=== PATIENT | female | born 1985 | race Caucasian/White ===

== ENCOUNTER 2016-07-30 11:38 | Emergency (ER) | payer OTHER ==
[2016-07-30 11:48] VITALS: BP 101/59
--- NOTE | 2016-07-30 13:19 | UC ---
UC General HPI - HPI Summary HPI Summary: Patient is here with multiple complaints, first she has a rash on her chest, back and arms, she has had it for a while comes out when she is hot. second, she has had loose stools for the past month, has lost 15 pounds and is not tolerating food well. hx of anxiety has been on lexapro for the past year. 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 - History of Current Complaint Chief Complaint: UCGeneralIllness Stated Complaint: ABD PAIN,BLOOD IN URINE Time Seen by Provider: 07/30/16 12:34 Hx Obtained From: Patient Onset/Duration: Sudden Onset, Lasting Weeks Timing: Constant Onset Severity: Moderate Current Severity: Severe Associated Signs & Symptoms: Positive: Abdominal Pain, Diarrhea, Headache, Nausea, Weakness - Allergy/Home Medications Allergies/Adverse Reactions: Allergies Allergy/AdvReac Type Severity Reaction Status Date / Time No Known Allergies Allergy Verified 07/30/16 11:47 PMH/Surg Hx/FS Hx/Imm Hx Previously Healthy: Yes Endocrine History Of: Denies: Diabetes, Thyroid Disease Cardiovascular History Of: Denies: Cardiac Disorders, Hypertension, Pacemaker/ICD Respiratory History Of: Denies: Asthma GI/ History Of: Reports: Kidney Stones - RIGHT SIDED KIDNEY [id number] SINCE Denies: Renal Disease Psychological History Of: Reports: Anxiety - ON MED, Depression - ON MED - Surgical History Surgical History: Yes Surgery Procedure, Year, and Place: Tubal lig-. GALLBLADDER-. KIDNEY STONE REMOVAL. t/a. thyroid cyst - Family History Known Family History: Negative: Cardiac Disease, Hypertension - Social History Alcohol Use: Occasionally Alcohol Amount: 1-2 A MONTH Substance Use Type: None Smoking Status (MU): Light Every Day Tobacco Smoker Amount Used/How Often: 4 CIGS DAILY Length of Time of Smoking/Using Tobacco: 6 YEARS Have You Smoked in the Last Year: Yes Review of Systems Constitutional: Fatigue Skin: Rash Eyes: Negative ENT: Negative Respiratory: Negative Cardiovascular: Palpitations Gastrointestinal: Abdominal Pain, Diarrhea Genitourinary: Negative Motor: Negative Neurovascular: Negative Musculoskeletal: Negative Neurological: Headache Psychological: Anxious All Other Systems Reviewed And Are Negative: Yes Physical Exam Triage Information Reviewed: Yes Appearance: Well-Nourished, Ill-Appearing, Pain Distress Vital Signs: Initial Vital Signs Temp 97.4 F 07/30/16 11:42 Pulse 70 07/30/16 11:42 Resp 14 07/30/16 11:42 BP 101/59 07/30/16 11:42 Pulse Ox 100 07/30/16 11:42 Vital Signs Reviewed: Yes Eye Exam: Normal Eyes: Positive: Conjunctiva Clear ENT Exam: Normal ENT: Positive: Hearing grossly normal, Pharynx normal, TMs normal Dental Exam: Normal Neck exam: Normal Neck: Positive: Supple, Nontender, No Lymphadenopathy Respiratory Exam: Normal Respiratory: Positive: Chest non-tender, Lungs clear, Normal breath sounds Cardiovascular: Positive: No Murmur, Pulses Normal, Bradycardia Abdominal Exam: Normal Abdomen Description: Positive: Soft, CVA Tenderness (R) - neg, CVA Tenderness (L ) - neg, Other: - diffusely tender, no guarding no rebound tenderness Bowel Sounds: Positive: Hyperactive Musculoskeletal Exam: Normal Musculoskeletal: Positive: Strength Intact, ROM Intact, No Edema Neurological Exam: Normal Neurological: Positive: Alert, Muscle Tone Normal Psychological Exam: Other - patient does seem anxious, frustrated as she feels her doctor has been not listening to her concerns, she is holding back tears at beginning of exam, improved by the end of the meeting Skin: Positive: rashes - tinea versacolor rash, Other Course/Dx - Course Course Of Treatment: hx obtained, exam performed, meds reviewed, increased the lexapro dose and patient already has an appointment with pcp in 3 weeks for follow up. Started patient on ketoconizole for the rash. Blood work drawn to rule out infection, electrolye imbalance, and Mg level drawn as patient has been on high dose magnesium for a few months now. - Differential Dx - Multi-Symptom Provider Diagnoses: diarrhea. anxiety. weight loss of 15 pounds. tinea versicolor Discharge - Discharge Plan Condition: Stable Disposition: HOME Prescriptions: Escitalopram (NF) [Lexapro 20 mg (NF)] 20 mg PO DAILY #30 tab Ketoconazole (Topical) [Ketoconazole] 2 % TOPICAL BID #1 tube Patient Education Materials: Tinea Versicolor (ED), Anxiety (ED) Referrals: Andrew Ladd DO [Primary Care Provider] - Additional Instructions: 1. Take the medication as prescribed. 2. Increase your fluid intake 3. We linnea a magnesium level and a CBC and electrolye panel for you, we will call with any abnormal results. 4. eat small meals as tolerated. 5. follow up with Dr Ladd in the next 2-3 weeks to reevaluate the change in dosage of lexapro.
[2016-07-31 13:47] LABS: Hematocrit 44 % (35-47); Hemoglobin 14.6 g/dl (12.0-16.0); Mean Corpuscular HGB Conc 34 g/dl (31-36); Mean Corpuscular Hemoglobin 32 pg (27-31); Mean Corpuscular Volume 95 fL (80-97); Mean Platelet Volume 11 um3 (7.4-10.4); Red Blood Count 4.59 10^6/ul (4.0-5.4); Red Cell Distribution Width 13 % (10.5-15); White Blood Count 7.5 10^3/ul (3.5-10.8)
[2016-07-31 13:58] LABS: Albumin 4.3 g/dL (3.2-5.2); BUN/Creatinine Ratio 13.4 (8-20); Calcium 9.6 mg/dL (8.6-10.3); EGFR African American 132.9 (>60); EGFR Non-African American 103.3 (>60); Globulin 2.6 g/dL (2-4); Magnesium 1.8 mg/dL (1.9-2.7); Potassium 3.9 mmol/L (3.5-5.0); Total Bilirubin 1.7 mg/dL (0.2-1.0); Total Protein 6.9 g/dL (6.4-8.9)
--- NOTE | 2016-07-31 18:43 | UC ---
Progress - Progress Note Progress Note: Please notify pt that her magnesium level is still slightly low, even though she has been on high dose magnesium. Her level is 1.8 and normal starts at 1.9. Also please notify pt that her bilirubin is elevated, even though the rest of her liver functions are normal. This will have to be evaluated further by her PCP. However, by comparing it with her previous labs in the system this is the highest number for her bilirubin. It is nonspecific, but can sometimes mean there is a retained stone in her bile duct, even though her gall bladder is removed, or it can be hereditary (Gilbert's syndrome), or it can be due to medication. She should avoid any liver toxins, alcohol and acetaminophen, and she should have definite follow up with her PCP as scheduled (3 weeks), and she should go to the ER if she has abdominal pain. There is no sign of overwhelming infection based on her blood count.(CBC).
== END 2016-07-30 13:23 | disposition home or self-care (01) ==
LOC: UCCORT 11:38
DX: R19.7 Diarrhea, unspecified (principal); F41.9 Anxiety disorder, unspecified; R63.4 Abnormal weight loss; B36.0 Pityriasis versicolor
CPT/HCPCS: 36415; 80053; 81003; 83735; 84702; 85025; 93005; 99212; G0463

== ENCOUNTER 2017-02-14 08:23 | Emergency (ER) | payer OTHER ==
--- NOTE | 2017-02-14 08:51 | UC ---
Head Injury HPI - HPI Summary HPI Summary: head injury x 1 day ago s/p fall at her home one day ago and hit the back of her head to the floor ? LOC, + PHOTOPHOBIA, + NAUSEA AND VOMITING , LIGHTHEADED , PAIN ALL OVER - History Of Current Complaint Chief Complaint: UCGeneralIllness Stated Complaint: S/P FALL HEAD INJURY BACK/STOMACH PAIN VOMITING Time Seen by Provider: 02/14/17 08:29 Hx Obtained From: Patient Hx Last Menstrual Period: 01/22/17 ?: No Onset/Duration: Sudden Onset, Lasting Days - 1, Still Present Severity Currently: Moderate Severity Initially: Moderate Character: Dull Aggravating Factor(s): Nothing Alleviating Factor(s): Nothing Associated Signs And Symptoms: Positive: LOC Duration Unknown, Memory Loss, Neck Pain, Nausea, Vomiting. Negative: Confusion, Seizure, Epistaxis, Dental Malocclusion - Allergies/Home Medications Allergies/Adverse Reactions: Allergies Allergy/AdvReac Type Severity Reaction Status Date / Time No Known Allergies Allergy Verified 02/14/17 08:31 Home Medications: Home Medications Ibuprofen [Ibuprofen 200 MG] 400 mg PO Q4H PRN 02/14/17 [History Confirmed 02/14] PMH/Surg Hx/FS Hx/Imm Hx Previously Healthy: Yes - Surgical History Surgical History: Yes Surgery Procedure, Year, and Place: Tubal lig-. GALLBLADDER-. KIDNEY STONE REMOVAL. t/a. thyroid cyst. laproscopic - Family History Known Family History: Negative: Cardiac Disease, Hypertension - Social History Alcohol Use: Occasionally Alcohol Amount: 1-2 A MONTH Substance Use Type: None Smoking Status (MU): Former Smoker Amount Used/How Often: 4 CIGS DAILY Length of Time of Smoking/Using Tobacco: 6 YEARS Have You Smoked in the Last Year: Yes When Did the Patient Quit Smoking/Using Tobacco: 3 weeks ago Review of Systems Constitutional: Negative Skin: Negative Eyes: Negative ENT: Negative Respiratory: Negative Musculoskeletal: Myalgia Neurological: Headache, Weakness Psychological: Negative Is Patient Immunocompromised?: No All Other Systems Reviewed And Are Negative: Yes Physical Exam Triage Information Reviewed: Yes Appearance: Well-Appearing, No Pain Distress, Well-Nourished Vital Signs: Initial Vital Signs Temp 99.3 F 02/14/17 08:32 Pulse 78 02/14/17 08:32 Resp 16 02/14/17 08:32 BP 110/71 02/14/17 08:32 Vital Signs Reviewed: Yes Eyes: Positive: Conjunctiva Clear ENT: Positive: Normal ENT inspection, Hearing grossly normal, Pharynx normal, TMs normal Neck exam: Normal Neck: Positive: Supple, Nontender, No Lymphadenopathy Respiratory: Positive: Chest non-tender, Lungs clear, Normal breath sounds, No respiratory distress Cardiovascular: Positive: RRR, No Murmur, Pulses Normal Abdominal Exam: Normal Abdomen Description: Positive: Nontender, Soft. Negative: CVA Tenderness (R), CVA Tenderness (L), Distended, Guarding Musculoskeletal: Positive: Strength Intact, ROM Intact Neurological: Positive: Alert Skin Exam: Normal UC Physical Exam Vital Signs On Initial Exam: Initial Vitals Temp Pulse Resp BP 99.3 F 78 16 110/71 02/14/17 08:32 02/14/17 08:32 02/14/17 08:32 02/14/17 08:32 - Neurological Exam Neurological: Normal, Sensory/Motor Intact, Alert, Oriented to Person Place, Time, CN Intact II-III, Reflexes Intact, Normal Gait, Speech Normal Head Injury Course/Dx - Differential Dx/Diagnosis Provider Diagnoses: CONCUSSION. CONTUSION BODY Discharge - Discharge Plan Condition: Stable Disposition: HOME Prescriptions: Naproxen [Naproxen 500 mg] 500 mg PO BID #20 tab Patient Education Materials: Concussion (ED), Contusion in Adults (ED) Referrals: Andrew Ladd DO [Primary Care Provider] - 7 Days
[2017-02-14 08:55] VITALS: BP 110/71
== END 2017-02-14 08:55 | disposition home or self-care (01) ==
LOC: UCCORT 08:23
DX: S06.0X9A Concussion with loss of consciousness of unspecified duration, initial encounter (principal); T14.8XXA Other injury of unspecified body region, initial encounter; W19.XXXA Unspecified fall, initial encounter; Y93.9 Activity, unspecified; Y92.009 Unspecified place in unspecified non-institutional (private) residence as the place of occurrence of the external cause; Y99.9 Unspecified external cause status; Z87.891 Personal history of nicotine dependence
CPT/HCPCS: 99211; G0463

== ENCOUNTER 2017-02-23 08:23 | Emergency (ER) | payer OTHER ==
[2017-02-23 08:33] VITALS: BP 113/63
--- NOTE | 2017-02-23 09:07 | UC ---
Respiratory Complaint HPI - HPI Summary HPI Summary: 31 year old female with cough. 2 DAYS AGO PT LOST VOICE, MINOR COUGH BUT DOES STATE THAT HER CHEST HURTS WHEN SHE BREATHS. LOWER BACK IS ALSO PAINFUL. ALSO HAS ST no fever. no difficulty swallowing. no CP or SOB. [ End ] - History of Current Complaint Chief Complaint: UCGeneralIllness Stated Complaint: SORE THROAT CHEST DISCOMFORT LOW BACK PAIN Time Seen by Provider: 02/23/17 09:06 Hx Obtained From: Patient Hx Last Menstrual Period: 01/22/17 Onset/Duration: Sudden Onset Severity Initially: Moderate Character: Cough: Nonproductive Aggravating Factors: Nothing Alleviating Factors: Nothing Associated Signs And Symptoms: Positive: Nasal Congestion, Hoarseness - Allergies/Home Medications Allergies/Adverse Reactions: Allergies Allergy/AdvReac Type Severity Reaction Status Date / Time No Known Allergies Allergy Verified 02/14/17 08:31 PMH/Surg Hx/FS Hx/Imm Hx Previously Healthy: Yes Psychological History: Anxiety - Surgical History Surgical History: Yes Surgery Procedure, Year, and Place: Tubal lig-. GALLBLADDER-. KIDNEY STONE REMOVAL. t/a. thyroid cyst - Family History Known Family History: Negative: Cardiac Disease, Hypertension - Social History Occupation: Employed Full-time Lives: With Family Alcohol Use: Occasionally Alcohol Amount: 1-2 A MONTH Substance Use Type: None Smoking Status (MU): Light Every Day Tobacco Smoker Amount Used/How Often: 4 CIGS DAILY Length of Time of Smoking/Using Tobacco: 6 YEARS Have You Smoked in the Last Year: Yes When Did the Patient Quit Smoking/Using Tobacco: 3 weeks ago - Immunization History Most Recent Influenza Vaccination: NOT CURRENT Review of Systems Constitutional: Chills, Fatigue ENT: Sore Throat, Ear Ache, Nasal Discharge, Sinus Congestion, Sinus Pain/ Tenderness Respiratory: Cough Is Patient Immunocompromised?: No All Other Systems Reviewed And Are Negative: Yes Physical Exam Triage Information Reviewed: Yes Appearance: Well-Appearing, No Pain Distress, Well-Nourished Vital Signs: Initial Vital Signs Temp 97.6 F 02/23/17 08:28 Pulse 83 02/23/17 08:28 Resp 18 02/23/17 08:28 BP 113/63 02/23/17 08:28 Pulse Ox 100 02/23/17 08:28 Vital Signs Reviewed: Yes Eye Exam: Normal ENT Exam: Normal Dental Exam: Normal Neck exam: Normal Neck: Positive: 1 Respiratory Exam: Normal Cardiovascular Exam: Normal Musculoskeletal Exam: Normal Neurological Exam: Normal Psychological Exam: Normal Skin Exam: Normal UC Diagnostic Evaluation - Laboratory O2 Sat by Pulse Oximetry: 100 Respiratory Course/Dx - Course Course Of Treatment: uri -- viral -- treat supportviely - Differential Dx/Diagnosis Differential Diagnosis/HQI/PQRI: Bronchitis, Lower Resp Infection, Sinusitis Provider Diagnoses: URI Discharge - Discharge Plan Condition: Good Disposition: HOME Prescriptions: Methylprednisolone [Medrol Dosepak 4 MG*] 0 mg PO .SEE LYNNE INSTRUCTION #1 tab Patient Education Materials: Upper Respiratory Infection (ED) Referrals: Zora Nevarez PA [Primary Care Provider] - 4 Days
--- OUTSIDE RECORDS SUMMARY | 2017-02-23 09:13 | XMS REPORT | Continuity of Care Document ---
:1985 Author Organization [facility] Address [address] [place] [address] Care Team Providers Name Role Phone rCistina JEFFERSON Primary Care Physician [phone] Insurance Providers Payer Name Policy Number Subscriber Name Relationship [facility] [id number] [employer] SELF Advance Directives Directive Response Recorded Date/Time Code status: Full code 02/09/17 8:43am Advance Directive? Y 02/09/17 8:43am Living Will? N 02/09/17 8:43am Health Care Proxy? 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 02/09/17 8:43am Chief Complaint and Reason for Visit Reason for Visit FEELS LIKE SOMETHING ATTACKING MUSCLES Problems Active Medical Problems Problem Onset Date Recorded Date Status Bronchitis Unknown 08/21/13 Active Abdominal pain Unknown 10/13/13 Active Gastritis Unknown 10/16/13 Active Palpitations Unknown 10/16/13 Active Abdominal pain Unknown 11/14/13 Active GERD (gastroesophageal reflux disease) Unknown 11/14/13 Active Syncope Unknown 11/18/13 Active Chest pain Unknown 11/18/13 Active Pain, dental Unknown 05/18/14 Active Dental abscess Unknown 05/19/14 Active Sinusitis, acute Unknown 05/20/14 Active Post-op bleeding Unknown 07/27/14 Active Anemia Unknown 07/29/14 Active Diarrhea Unknown 10/27/15 Active Pain, abdominal, nonspecific Unknown 10/27/15 Active Hypokalemia due to loss of potassium Unknown 10/27/15 Active Pharyngitis Unknown 01/14/16 Active Medications Current Home Medications Medication Dose Units Route Directions Days/Qty Instructions Start Date Alprazolam 0.25 0.25 MG ORAL 3 TIMES DAILY 90 MG TABLET as needed for ANXIETY Ibuprofen 400 MG 400 MG ORAL EVERY 4 TO 6 14 TABLET HRS as needed for PAIN Ondansetron HCl 4 MG ORAL EVERY 8 HOURS 10 NEEDED FOR 11/04/16 (Zofran) 4 MG NEEDED as NAUSEA TABLET needed for NAUSEA Past Home Medications Medication Directions Ordered Status Acetaminophen (Tylenol) 325 Mg Tab EVERY 6 HOURS NEEDED Unknown Discontinued Tab, 2 Tab Oral Acetaminophen (Tylenol) 325 Mg ONCE DAILY as needed for PAIN Unknown Discontinued Tablet Tablet, 2 Tab Oral Acetaminophen (Tylenol) 325 Mg ONCE DAILY as needed for PAIN Unknown Discontinued Tablet Tablet, 2 Tab Oral Acetaminophen (Tylenol) 500 Mg Tab EVERY 4 HOURS NEEDED Unknown Discontinued Tab, 500 Mg Oral Acetaminophen (Tylenol) 500 Mg Tab Unknown Discontinued Tab, 500 Mg Oral Acetaminophen (Tylenol) 500 Mg Tab Unknown Discontinued Tab, 500 Mg Oral Acetaminophen/Hydrocodone Bi EVERY 4 HOURS NEEDED 10/18/11 Discontinued (Vicodin 5/500) 5 Mg/500 Mg Tab Tab, 1 Tab Oral Acetaminophen/Hydrocodone Bi EVERY 4-6 HOURS NEEDED 04/22/10 Discontinued (Vicodin 5/500) 5 Mg/500 Mg Tab Tab, 1 Tab Oral Acetaminophen/Hydrocodone Bi EVERY 4-6 HOURS NEEDED 01/12/10 Discontinued (Vicodin 5/500) 5 Mg/500 Mg Tab Tab, 1 Tab Oral Acetaminophen/Hydrocodone Bi EVERY 4-6 HOURS NEEDED Unknown Discontinued (Vicodin 5/500) 5 Mg/500 Mg Tab Tab, 1-2 Tab Oral Acetaminophen/Hydrocodone Bi EVERY 4 HOURS NEEDED 04/07/08 Discontinued (Vicodin 5/500) 5 Mg/500 Mg Tab Tab, 1 Tab Oral Acetaminophen/Oxycodone Hydr EVERY 6 HOURS NEEDED 11/17/11 Discontinued (Percocet) 5 Mg-325 Mg Tab Tab, 1-2 Tab Oral Acetaminophen/Oxycodone Hydr EVERY 6 HOURS NEEDED Unknown Discontinued (Percocet) 5 Mg-325 Mg Tab Tab, 1 Tab Oral Acetaminophen/Oxycodone Hydr EVERY 4 HOURS NEEDED Unknown Discontinued (Percocet) 7.5 Mg-500 Mg Tab Tab, 1 Tab Oral Albuterol (Proventil) 90 Mcg/Puff EVERY 2 HOURS NEEDED 04/22/10 Discontinued Inhaler Inhaler, 2 Puff Inhalation Albuterol (Proventil) 90 Mcg/Puff EVERY 4 HOURS NEEDED 04/20/09 Discontinued Inhaler Inhaler, 2 Puff Inhalation Albuterol (Proventil) 90 Mcg/Puff EVERY 2 HOURS NEEDED 01/23/08 Discontinued Inhaler Inhaler, 2 Puff Inhalation Alprazolam 0.25 Mg Tablet Tablet, NEEDED Unknown Discontinued 1 Tab Oral Alprazolam 0.25 Mg Tablet Tablet, EVERY 4 HOURS NEEDED as 11/19/13 Discontinued 0.125 Mg Oral needed for ANXIETY Aluminum Hydroxide/Magnesium EVERY 6 HOURS 05/07/09 Discontinued (Maalox 225 Mg/5 Ml-200 Mg/5 Ml 360 Ml) 360 Ml Oanh Oanh, 30 Ml Oral Amoxicillin (Amoxil) 500 Mg Cap 2 TIMES A DAY 04/20/09 Discontinued Cap, 1 Cap Oral Apap/Cpm/Dm/Pse Hcl (Tylenol Cold NEEDED Unknown Discontinued 325 Mg-2 Mg-15 Mg-30 Mg) 1 Tab Tab Tab, 1 Tab Oral Azithromycin (Zithromax Z-Andrea) 250 Unknown Discontinued Mg Pack Pack, Azithromycin (Zithromax) 250 Mg DIRECTED 08/21/13 Discontinued Tablet Tablet, 1 Pac Oral Benzocaine/Menthol (Cepacol Sore EVERY 4 HOURS NEEDED as 01/14/16 Discontinued Throat Lozenge) 15 Mg-3.6 Mg needed for pharyngitis Lozenge Lozenge, 1 [place] Oral Buspirone Hcl 7.5 Mg Tablet 2 TIMES A DAY as needed for Unknown Discontinued Tablet, 7.5 Mg Oral ANXIETY Cyclobenzaprine (Flexeril) 10 Mg EVERY 4-6 HOURS NEEDED 10/18/11 Discontinued Tab Tab, 1 Tab Oral Cyclobenzaprine Hcl (Flexeril *) 5 3 TIMES DAILY Unknown Discontinued Mg Tablet Tablet, 5 Mg Oral Doxycycline (Doxycycline Hyclate) 2 TIMES A DAY Unknown Discontinued 50 Mg Capsule Capsule, 50 Mg Oral Erythromycin (Ancelmo-Tab) 500 Mg Tcp 4 TIMES A DAY 01/23/08 Discontinued Tcp, 500 Mg Oral Escitalopram (Lexapro) 20 Mg Tab ONCE DAILY Unknown Discontinued Tab, 1 Tab Oral Escitalopram Oxalate (Lexapro) 10 AT BEDTIME Unknown Discontinued Mg Tablet Tablet, 10 Mg Oral Escitalopram Oxalate (Lexapro) 10 ONCE DAILY 11/19/13 Discontinued Mg Tablet Tablet, 10 Mg Oral Ferrous Sulfate (Feosol) 325 Mg 2 TIMES A DAY Unknown Discontinued Tablet Tablet, 2 Tab Oral Ferrous Sulfate (Feosol) 325 Mg ONCE for ANEMIA 07/29/14 Discontinued Tablet Tablet, 1 Tab Oral Generic Name Is Missing EVERY 8 HOURS NEEDED 12/27/08 Discontinued (Phenergan) 12.5 Mg/Supp.rect Supp.rect Supp.rect, 12.5 Mg Rectal Generic Name Is Missing () ONCE DAILY Unknown Discontinued 1 Tab Tablet Tablet, Generic Name Is Missing () ONCE DAILY Unknown Discontinued 1 Tab Tablet Tablet, 1 Tab Oral Guaifenesin/Dm (Robitussin Dm) 100 EVERY 4-6 HOURS NEEDED 04/20/09 Discontinued Mg/10 Mg Ml Ml, 1 Tsp Oral Hyoscyamine Sulfate (Hyomax-Sl) BEFORE MEALS 11/16/13 Discontinued 0.125 Mg Tab.subl Tab.subl, 0.25 Mg Oral Ibuprofen (Motrin) 600 Mg Tab Tab, EVERY 8 HOURS NEEDED 02/13/08 Discontinued 1 Tab Oral Ibuprofen (Motrin) 600 Mg Tab Tab, EVERY 6-8 HOURS NEEDED 10/09/07 Discontinued 1 Tab Oral Ibuprofen 400 Mg Tablet Tablet, EVERY 4 TO 6 HRS 08/02/16 Discontinued 400 Mg Oral Ibuprofen 600 Mg Tablet Tablet, 3 TIMES DAILY 05/18/14 Discontinued 600 Mg Oral Magnesium Oxide (Mag-Oxide) 400 Mg 2 TIMES A DAY Unknown Discontinued Tablet Tablet, 1 Tab Oral Magnesium Oxide (Magnesium) 400 Mg EVERY 48 HOURS Unknown Discontinued Capsule Capsule, 1 Oral Magnesium Oxide (Magnesium) 400 Mg 2 TIMES A DAY Unknown Discontinued Capsule Capsule, 1 Tab Oral Meloxicam 7.5 Mg Tablet Tablet, ONCE DAILY Unknown Discontinued 7.5 Mg Oral Metaxalone (Skelaxin) 800 Mg ONCE DAILY as needed for PAIN Unknown Discontinued Tablet Tablet, 1 Tab Oral Metoclopramide (Reglan) 10 Mg Tab BEFORE MEALS & AT BEDTIME 04/07/08 Discontinued Tab, 10 Mg Oral Metoprolol Tartrate 25 Mg Tablet 2 TIMES A DAY Unknown Discontinued Tablet, 25 Mg Oral Metronidazole (Flagyl) 250 Mg 2 TIMES A DAY Unknown Discontinued Tablet Tablet, 250 Mg Oral Metronidazole (Flagyl) 500 Mg 2 TIMES A DAY 05/19/14 Discontinued Tablet Tablet, 500 Mg Oral Metronidazole (Flagyl) 500 Mg 2 TIMES A DAY Unknown Discontinued Tablet Tablet, 500 Mg Oral Metronidazole (Metrogel) 1 % Gel AT BEDTIME 12/27/08 Discontinued Gel, 1 % Topical Midodrine Hcl 5 Mg Tab Tab, 5 Mg 2 TIMES A DAY Unknown Discontinued Oral Multivitamin, ( ONCE DAILY Unknown Discontinued Vitamins) 1 Tab Tab Tab, 1 Tab Oral No Medication Used (Pt Denies Any DIRECTED Unknown Discontinued Use Of Medications) 1 Form Form Form, 1 Form See Comment Nortriptyline (Pamelor) 10 Mg Cap AT BEDTIME Unknown Discontinued Cap, 10 Mg Oral Omeprazole (Prilosec) 40 Mg ONCE DAILY 10/16/13 Discontinued Capsule. Capsule.dr, 40 Mg Oral Ondansetron (Zofran Odt) 4 Mg Tab EVERY 6-8 HOURS NEEDED 12/07/08 Discontinued Tab, 1 Tab Oral Ondansetron Hcl (Zofran) 4 Mg EVERY 8 HOURS NEEDED as 02/02/17 Discontinued Tablet Tablet, 4 Mg Oral needed for NAUSEA Ondansetron Hcl (Zofran) 4 Mg EVERY 8 HOURS NEEDED as 08/02/16 Discontinued Tablet Tablet, 4 Mg Oral needed for NAUSEA Ondansetron Hcl (Zofran) 4 Mg 3 TIMES A DAY NEEDED as 06/15/16 Discontinued Tablet Tablet, 4 Mg Oral needed for NAUSEA Ondansetron Hcl (Zofran) 4 Mg EVERY 8 HOURS NEEDED as 10/27/15 Discontinued Tablet Tablet, 4 Mg Oral needed for NAUSEA Ondansetron Hcl (Zofran) 4 Mg EVERY 8 HOURS 10/16/13 Discontinued Tablet Tablet, 4 Mg Oral Oxycodone Hcl/Acetaminophen EVERY 4 TO 6 HRS as needed Unknown Discontinued (Percocet 5-325 Mg Tablet) 1 Each for PAIN Tablet Tablet, 1 Tablet Oral Oxycodone Hcl/Acetaminophen EVERY 4 TO 6 HRS for PAIN 05/22/14 Discontinued (Percocet 5-325 Mg Tablet) 1 Each Tablet Tablet, 1-2 Tablet Oral Penicillin V Potassium 500 Mg EVERY 12 HOURS 05/18/14 Discontinued Tablet Tablet, 500 Mg Oral Promethazine (Phenergan) 25 Mg Tab EVERY 4-6 HOURS NEEDED 01/12/10 Discontinued Tab, 1 Tab Oral Scopolamine Hydrobromide Q72H 11/19/13 Discontinued (Transderm-Scop) 1 Patch Patch Patch, 1 Patch Transdermal Sucralfate (Carafate 1 Gm) 1 Gram 2 TIMES A DAY 05/07/09 Discontinued Tab Tab, 1 Gm Oral Tramadol Hcl (Ultram) 50 Mg Tablet EVERY 4 TO 6 HRS Unknown Discontinued Tablet, 50 Mg Oral Family History Relationship Name Date of Condition Age ( At Cause Age ( Age Gender Recorded Onset ) of At Date/Time ) MOTHER Family history F 07/28/14 of fibromyalgia 0054 MOTHER Family history F 07/28/14 of neuropathy 0054 MOTHER Family history F 07/28/14 of cardiac 0054 disorder MOTHER Family history F 07/28/14 of type 1 0054 diabetes mellitus SISTER Family history F 07/28/14 of thyroid 0054 disease Social History Problem Response Recorded Date Other substance/drug use HASN'T USED [facility] IN A 02/09/17 WHILE Tobacco use within the past 12 N 12/14/12 months? Alcohol amt NONE 09/08/10 Evidence of drug/alcohol abuse? N 02/09/17 Query Response Start Date Stop Date Smoking Status Former smoker Status Date Recorded Not November 04, 2016 Hospital Discharge Instructions No hospital discharge instructions. Plan of Care Discharge Date 02/09/17 Disposition Routine Discharge Home Instructions/Education Provided Musculoskeletal Pain (ED) Prescriptions See Medications Section Referrals MARILYN JEFFERSON - Additional Instructions/Education You need to make an appointment to follow- up with the following health care provider or your regular doctor within 3 days. Please make your appointment to see your health care provider as soon as possible. Please return immediately if your symptoms worsen, or you cannot get a follow-up appointment. Functional Status Query Response Date Recorded Do you get in and out of a chair: Independently February 09, 2017 8:41am Do you walk: Independently February 09, 2017 8:41am Do you bathe/dress: Independently February 09, 2017 8:41am Adaptive devices: None February 09, 2017 8:41am Living situation: Homeless February 09, 2017 8:41am Mood: Accepting February 09, 2017 8:41am Orientation: X3: Person/place/time February 09, 2017 8:41am Allergies, Adverse Reactions, Alerts No known allergies. Immunizations Name Date Given Type Influenza vaccine (date): Historical Pneumococcal vaccine (date): NO Historical Last Tetanus 07/2010 Historical Vital Signs Vital Reading Collection Date/Time Result Blood Pressure 02/09/17 12:00pm 92/54 Temperature 02/09/17 12:00pm 98.0 F Temperature Source 02/09/17 12:00pm Oral Respiratory Rate 02/09/17 12:00pm 16 Pulse Rate 02/09/17 12:00pm 66 Bedside Pulse Oximetry 02/09/17 12:00pm 98 Height 02/09/17 8:30am 5 ft 3 in Height 02/09/17 8:30am 160.02 cm Weight 02/09/17 8:30am 119 lb Weight 02/09/17 8:30am 53.978 kg Body Mass Index 02/09/17 8:30am 21.1 kg/m2 Results Laboratory Results Test Name Result Units Flags Reference Collection Result Comments Date/Time Date/Time Urine Color YELLOW YELLOW 02/09/17 02/09/17 10:22am 10:32am Urine Clarity CLEAR CLEAR 02/09/17 02/09/17 10:22am 10:32am Urine Glucose NEGATIVE mg/dL NEGATIVE 02/09/17 02/09/17 (UA) 10:22am 10:32am Urine Bilirubin NEGATIVE NEGATIVE 02/09/17 02/09/17 10:22am 10:32am Urine Ketones NEGATIVE mg/dL NEGATIVE 02/09/17 02/09/17 10:22am 10:32am Urine Specific >=1.03 1.010-1.03 02/09/17 02/09/17 [place] 0 0 10:22am 10:32am Urine Blood SMALL H NEGATIVE 02/09/17 02/09/17 10:22am 10:32am Urine pH 5.5 L 6.5-7.5 02/09/17 02/09/17 10:22am 10:32am Urine Protein NEGATIVE mg/dL NEGATIVE 02/09/17 02/09/17 10:22am 10:32am Urine 0.2 E.U./d 0.2-1.0 02/09/17 02/09/17 Urobilinogen L 10:22am 10:32am Urine Nitrite NEGATIVE NEGATIVE 02/09/17 02/09/17 10:22am 10:32am Urine Leukocyte NEGATIVE NEGATIVE 02/09/17 02/09/17 Esterase 10:22am 10:32am Urine RBC 2-5 rbc/hp 0-2 02/09/17 02/09/17 f 10:22am 11:09am Urine WBC 0-2 wbc/hp 0-7 02/09/17 02/09/17 f 10:22am 11:09am Urine Epithelial FEW /lpf NONE SEEN 02/09/17 02/09/17 Cells 10:22am 11:09am Urine Bacteria VERY FEW NONE SEEN 02/09/17 02/09/17 10:22am 11:09am Urine Hyaline 0-2 #/lpf NONE SEEN 02/09/17 02/09/17 Casts 10:22am 11:09am Urine Mucus SMALL NONE SEEN 02/09/17 02/09/17 10:22am 11:09am Urine HCG, NEGATIVE NEGATIVE 02/09/17 02/09/17 FIRST MORNING SPECIMENS GENERALLY CONTAIN THE HIGHEST Qualitative 10:22am 10:42am CONCENTRATION OF HCG AND ARE RECOMMENDED FOR EARLY DETECTION OF . Method: Quidel QuickVue One-Step Immunoassay Urine Negative 02/09/17 02/09/17 Amphetamines 10:22am 11:51am Screen Urine Negative 02/09/17 02/09/17 Barbiturates 10:22am 11:51am Screen Urine Negative 02/09/17 02/09/17 Benzodiazepines 10:22am 11:51am Screen Urine POSITIVE H 02/09/17 02/09/17 Cannabinoids 10:22am 11:51am Screen Urine Cocaine Negative 02/09/17 02/09/17 Screen 10:22am 11:51am Urine Methadone Negative 02/09/17 02/09/17 Screen 10:22am 11:51am Urine Opiates Negative 02/09/17 02/09/17 Screen 10:22am 11:51am Urine Drug Screen * 02/09/17 02/09/17 URINE SPECIMENS ARE SCREENED AT THE LISTED Information 10:22am 10:28am [facility] INITIAL TEST LEVEL Amphetamines 1000 ng/mL Barbiturates 200 ng/mL Benzodiazepines 200 ng/mL Cannabinoids 50 ng/mL Cocaine Metabolite 300 ng/mL Methadone 300 ng/mL Opiates 300 ng/mL Any PRESUMPTIVE POSITIVE findings are UNCONFIRMED. Confirmatory testing is suggested if findings are unexpected. Please contact laboratory if confirmatory testing is desired. SPECIMENS ARE HELD FOR 72 HOURS. White Blood Count 7.4 K/uL 3.1-10.7 02/09/17 02/09/17 8:53am 9:15am Red Blood Count 4.21 M/uL 3.90-5.40 02/09/17 02/09/17 8:53am 9:15am Hemoglobin 13.9 gm/dL 11.6-15.8 02/09/17 02/09/17 8:53am 9:15am Hematocrit 40.2 % 36.0-46.1 02/09/17 02/09/17 8:53am 9:15am Mean Corpuscular 95.5 fl 80.9-99.0 02/09/17 02/09/17 Volume 8:53am 9:15am Mean Corpuscular 33.0 pg H 25.9-32.7 02/09/17 02/09/17 Hemoglobin 8:53am 9:15am Mean Corpuscular 34.6 g/dL H 30.8-34.3 02/09/17 02/09/17 Hemoglobin 8:53am 9:15am Concent Platelet Count 174 K/uL 150-400 02/09/17 02/09/17 8:53am 9:15am Red Cell 41.1 fl 3-47 02/09/17 02/09/17 Distribution 8:53am 9:15am Width RDW Coefficient 12.2 % 11.7-14.4 02/09/17 02/09/17 of Variation 8:53am 9:15am Mean Platelet 12.0 fL 8.9-12.4 02/09/17 02/09/17 Volume 8:53am 9:15am Neutrophils (%) 63.2 % 40.4-72.8 02/09/17 02/09/17 (Auto) 8:53am 9:15am Lymphocytes (%) 25.2 % 20.0-42.0 02/09/17 02/09/17 (Auto) 8:53am 9:15am Monocytes (%) 8.9 % 4.3-13.2 02/09/17 02/09/17 (Auto) 8:53am 9:15am Eosinophils (%) 2.4 % 0.0-6.6 02/09/17 02/09/17 (Auto) 8:53am 9:15am Basophils (%) 0.3 % 0.0-1.1 02/09/17 02/09/17 (Auto) 8:53am 9:15am Neutrophils # 4.70 K/uL 1.8-7.0 02/09/17 02/09/17 (Auto) 8:53am 9:15am Lymphocytes # 1.87 K/uL 1.0-4.0 02/09/17 02/09/17 (Auto) 8:53am 9:15am Monocytes # 0.66 K/uL 0.3-0.9 02/09/17 02/09/17 (Auto) 8:53am 9:15am Eosinophils # 0.18 K/uL 0.0-0.5 02/09/17 02/09/17 (Auto) 8:53am 9:15am Basophils # 0.02 K/uL 0.0-0.1 02/09/17 02/09/17 (Auto) 8:53am 9:15am Glucose Screen 92 mg/dL 74-106 02/09/17 02/09/17 8:53am 9:40am Blood Urea 12 mg/dL 7-18 02/09/17 02/09/17 Nitrogen 8:53am 9:40am Creatinine 0.6 mg/dL 0.6-1.3 02/09/17 02/09/17 8:53am 9:40am Estimated GFR >60 mL/min >60 02/09/17 02/09/17 (Non- 8:53am 9:40am [place] Estimated GFR >60 mL/min >60 02/09/17 02/09/17 Note: ( 8:53am 9:40am Persistent reduction for 3 months or more in an eGFR <60 [place]) mL/min/1.73 m2 defines CKD. Patients with eGFR values & gt;/=60 mL/min/1.73 m2 may also have CKD if evidence of persistent proteinuria is present. The original MDRD equation for estimated GFR is not valid for patients less than 18 years of age. Additional information may be found at www.kdoqi.org. BUN/Creatinine 20.0 ratio 02/09/17 02/09/17 Ratio 8:53am 9:40am Sodium Level 141 mmol/L 136-145 02/09/17 02/09/17 8:53am 9:40am Potassium Level 3.7 mmol/L 3.5-5.1 02/09/17 02/09/17 8:53am 9:40am Chloride Level 108 mmol/L H 98-107 02/09/17 02/09/17 8:53am 9:40am Carbon Dioxide 26 mmol/L 21-32 02/09/17 02/09/17 Level 8:53am 9:40am Anion Gap 7 mEq/L L 8-16 02/09/17 02/09/17 8:53am 9:40am Calcium Level 8.5 mg/dL 8.5-10.1 02/09/17 02/09/17 8:53am 9:40am Total Protein 7.4 g/dL 6.4-8.2 02/09/17 02/09/17 8:53am 9:40am Albumin 3.8 g/dL 3.4-5.0 02/09/17 02/09/17 8:53am 9:40am Globulin 3.6 g/dL 1.9-4.3 02/09/17 02/09/17 8:53am 9:40am Albumin/Globulin 1.1 ratio 02/09/17 02/09/17 Ratio 8:53am 9:40am Total Bilirubin 0.7 mg/dL 0.2-1.0 02/09/17 02/09/17 8:53am 9:40am Aspartate Amino 8 U/L L 15-37 02/09/17 02/09/17 Values below the stated reference ranges of AST and ALT can Transf (AST/SGOT) 8:53am 9:40am be seen in normal populations. Clinical correlation is suggested. Alanine 22 U/L 12-78 02/09/17 02/09/17 Aminotransferase 8:53am 9:40am (ALT/SGPT) Alkaline 66 U/L 45-117 02/09/17 02/09/17 Phosphatase 8:53am 9:40am Total Creatine 59 U/L 26-192 02/09/17 02/09/17 Kinase 8:53am 9:40am Creatine Kinase 0.7 ng/ml 0.5-3.6 02/09/17 02/09/17 MB Fraction 8:53am 11:15am Troponin I < ng/mL 02/09/17 02/09/17 0.0 - 0.045 ng/mL: Normal 0.015 8:53am 9:40am 0.046 - 0.5 ng/mL: Suggestive 0.6 - 1.5 ng/mL: Consistent Thyroid 0.33 uIU/mL 0.30-4.20 02/09/17 02/09/17 Stimulating 8:53am 9:44am Hormone (TSH) Lipase 190 U/L 56-289 02/02/17 02/02/17 9:51am 10:22am [facility] [address] [facility], [address] [place], [place] [address] ROBBY NGO : [id number] ROXANE JOHNS MD ƒ‚‚‚‚ƒ‚&# 8218;‚‚ƒ‚‚‚‚ƒ‚‚‚ ‚ [id number] ƒ‚‚‚‚ƒ‚‚‚‚ƒ&#8218 ;‚‚‚ƒ‚‚‚‚ƒ‚‚&# 8218;‚ƒ‚‚‚‚ƒ‚‚‚‚ ƒ‚‚‚‚ƒ‚‚‚‚ƒ&#8218 ;‚‚‚ƒ‚‚‚‚ƒ‚‚&# 8218;‚ ER Stationary ECG Study [facility] - ER Test Date: 2017-02-09 08:41:00 Pat Name: ROBBY NGO Department: ER Room: Gender: F 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 Intervals [place] Rate: 61 P: 73 ME: 160 QRS: 69 QRSD: 94 T: 66 QT: 422 QTc: 426 Interpretive Statements SINUS RHYTHM WITH MARKED SINUS ARRHYTHMIA NORMAL ECG No significant change 02/02/2017. Electronically Signed On 02-09-2017 16:53:30 EST by Roxane Johns M.D. Procedures Procedure Status Date Provider(s) MISAEL RUFF SEPARATE PROC Completed 11/21/16 [place] ANKLE COMPLETE - 4 VIEWS Completed 01/10/17 HONG KINCAID PEDIATRIC PHYSICIAN CT ANGIO CHEST Completed 02/02/17 ROXANE JOHNS MD CHEST PA AND LATERAL Completed 02/02/17 ROXANE JOHNS MD Encounters Encounter Location Arrival/Admit Date Discharge/Depart Date Attending Provider Departed [place] 02/09/17 8:21am 02/09/17 12:04pm Jose Guadalupe JOHNS MD [facility] Departed [place] 02/02/17 9:23am 02/02/17 1:48pm Jose Guadalupe JOHNS MD Medical [facility]tr[facility] Departed [place] 01/10/17 2:23pm 01/10/17 3:50pm DIANNE NAVARRO [facility] Departed [place] 11/21/16 6:45am 11/21/16 10:48am [place] [facility] Registered [place] 11/18/16 9:08am [place] [facility] Departed [place] 11/04/16 12:27pm 11/04/16 3:24pm CLYDE GALLEGOS [facility]
--- OUTSIDE RECORDS SUMMARY | 2017-02-23 09:13 | XMS REPORT | Continuity of Care Document ---
:1985 Author Organization [facility] Care Team Providers Name Role Phone Dionne TAVERAS Primary Care Physician [phone] Insurance Providers Payer Name Policy Number Subscriber Name Relationship [facility] [id number] [employer] Advance Directives Directive Response Recorded Date/Time Code status: Full code 02/02/17 9:37am Advance Directive? Y 02/02/17 9:37am Living Will? N 02/02/17 9:37am Health Care Proxy? Y 02/02/17 9:37am Is the patient an Organ Donor? Y 02/02/17 9:37am Chief Complaint and Reason for Visit Reason for Visit NAUSEA,PAIN CHEST, SHAKING Problems Active Medical Problems Problem Onset Date [...] NEEDED as NAUSEA TABLET needed for NAUSEA Ondansetron HCl 4 MG ORAL EVERY 8 HOURS 15 NEEDED FOR 02/02/17 (Zofran) 4 MG NEEDED as NAUSEA TABLET [...] (Prilosec) 40 Mg ONCE DAILY 10/16/[address] Mehta., 40 Mg Oral Ondansetron (Zofran Odt) 4 [...] Problem Response Recorded Date Other substance/drug use MJ IN PAST 02/02/17 Tobacco use within the past 12 months? N 12/14/12 Alcohol amt NONE 09/08/10 Query Response Start Date Stop Date Smoking Status Former smoker Status Date Recorded Not November 04, 2016 Hospital Discharge Instructions No hospital discharge instructions. Plan of Care Discharge Date 02/02/17 Disposition Routine Discharge Home Condition at Discharge STABLE Instructions/Education Provided ABD PAIN (USACS) Acute Nausea and Vomiting (ED) Prescriptions See Medications Section Referrals KATHY TAVERAS D.O. - Additional Instructions/Education You need to make [...] and out of a chair: Independently February 02, 2017 9:45am Do you walk: Independently February 02, 2017 9:45am Do you bathe/dress: Independently February 02, 2017 9:45am Adaptive devices: None February 02, 2017 9:45am Amount of assistance needed: None February 02, 2017 9:45am Living situation: Independent at home February 02, 2017 9:45am Mood: Accepting February 02, 2017 9:45am Orientation: X3: Person/place/time February 02, 2017 9:45am Allergies, Adverse Reactions, Alerts No known allergies. Immunizations Name Date Given Type Influenza vaccine (date): Historical Pneumococcal vaccine (date): NO Historical Last Tetanus 07/2010 Historical Vital Signs Vital Reading Collection Date/Time Result Blood Pressure 02/02/17 1:35pm 127/74 Temperature 02/02/17 1:35pm 98.0 F Temperature Source 02/02/17 1:35pm Temporal Respiratory Rate 02/02/17 1:35pm 18 Pulse Rate 02/02/17 1:35pm 81 Bedside Pulse Oximetry 02/02/17 1:35pm 98 Height 02/02/17 9:29am 5 ft 3 in Height 02/02/17 9:29am 160.02 cm Weight 02/02/17 9:29am 122 lb Weight 02/02/17 9:29am 55.339 kg Body Mass Index 02/02/17 9:29am 21.6 kg/m2 Results Laboratory Results Test Name Result Units Flags Reference Collection Result Comments Date/Time Date/Time Urine Color YELLOW YELLOW 02/02/17 02/02/17 12:31pm 12:42pm Urine Clarity CLEAR CLEAR 02/02/17 02/02/17 12:31pm 12:42pm Urine Glucose (UA) NEGATIVE mg/dL NEGATIVE 02/02/17 02/02/17 12:31pm 12:42pm Urine Bilirubin NEGATIVE NEGATIVE 02/02/17 02/02/17 12:31pm 12:42pm Urine Ketones 15 mg/dL H NEGATIVE 02/02/17 02/02/17 12:31pm 12:42pm Urine Specific <=1.005 L 1.010-1.03 02/02/17 02/02/17 Mathews 0 12:31pm 12:42pm Urine Blood TRACE NEGATIVE 02/02/17 02/02/17 12:31pm 12:42pm Urine pH 5.0 L 6.5-7.5 02/02/17 02/02/17 12:31pm 12:42pm Urine Protein NEGATIVE mg/dL NEGATIVE 02/02/17 02/02/17 12:31pm 12:42pm Urine Urobilinogen 0.2 E.U./d 0.2-1.0 02/02/17 02/02/17 L 12:31pm 12:42pm Urine Nitrite NEGATIVE NEGATIVE 02/02/17 02/02/17 12:31pm 12:42pm Urine Leukocyte NEGATIVE NEGATIVE 02/02/17 02/02/17 Esterase 12:31pm 12:42pm Urine HCG, NEGATIVE NEGATIVE 02/02/17 02/02/17 FIRST MORNING SPECIMENS GENERALLY CONTAIN THE HIGHEST Qualitative 12:31pm 12:46pm CONCENTRATION OF HCG AND ARE RECOMMENDED FOR EARLY DETECTION OF . Method: Quidel QuickVue One-Step Immunoassay White Blood Count 5.5 K/uL 3.1-10.7 02/02/17 02/02/17 9:51am 9:59am Red Blood Count 4.55 M/uL 3.90-5.40 02/02/17 02/02/17 9:51am 9:59am Hemoglobin 15.1 gm/dL 11.6-15.8 02/02/17 02/02/17 9:51am 9:59am Hematocrit 43.8 % 36.0-46.1 02/02/17 02/02/17 9:51am 9:59am Mean Corpuscular 96.3 fl 80.9-99.0 02/02/17 02/02/17 Volume 9:51am 9:59am Mean Corpuscular 33.2 pg H 25.9-32.7 02/02/17 02/02/17 Hemoglobin 9:51am 9:59am Mean Corpuscular 34.5 g/dL H 30.8-34.3 02/02/17 02/02/17 Hemoglobin Concent 9:51am 9:59am Platelet Count 195 K/uL 155-360 02/02/17 02/02/17 9:51am 9:59am Red Cell 42.3 fl 3-47 02/02/17 02/02/17 Distribution Width 9:51am 9:59am RDW Coefficient of 12.3 % 11.7-14.4 02/02/17 02/02/17 Variation 9:51am 9:59am Mean Platelet 11.4 fL 8.9-12.4 02/02/17 02/02/17 Volume 9:51am 9:59am Neutrophils (%) 55.9 % 40.4-72.8 02/02/17 02/02/17 (Auto) 9:51am 9:59am Lymphocytes (%) 33.5 % 20.0-42.0 02/02/17 02/02/17 (Auto) 9:51am 9:59am Monocytes (%) 8.3 % 4.3-13.2 02/02/17 02/02/17 (Auto) 9:51am 9:59am Eosinophils (%) 1.8 % 0.0-6.6 02/02/17 02/02/17 (Auto) 9:51am 9:59am Basophils (%) 0.5 % 0.0-1.1 02/02/17 02/02/17 (Auto) 9:51am 9:59am Neutrophils # 3.09 K/uL 1.8-7.0 02/02/17 02/02/17 (Auto) 9:51am 9:59am Lymphocytes # 1.85 K/uL 1.0-4.0 02/02/17 02/02/17 (Auto) 9:51am 9:59am Monocytes # (Auto) 0.46 K/uL 0.3-0.9 02/02/17 02/02/17 9:51am 9:59am Eosinophils # 0.10 K/uL 0.0-0.5 02/02/17 02/02/17 (Auto) 9:51am 9:59am Basophils # (Auto) 0.03 K/uL 0.0-0.1 02/02/17 02/02/17 9:51am 9:59am Glucose Screen 79 mg/dL 74-106 02/02/17 02/02/17 9:51am 10:22am Blood Urea 11 mg/dL 7-18 02/02/17 02/02/17 Nitrogen 9:51am 10:22am Creatinine 0.8 mg/dL 0.6-1.3 02/02/17 02/02/17 9:51am 10:22am Estimated GFR >60 mL/min >60 02/02/17 02/02/17 (Non- 9:51am 10:22am [place] Estimated GFR >60 mL/min >60 02/02/17 02/02/17 Note: () 9:51am 10:22am Persistent reduction for 3 months or more in an eGFR <60 mL/min/1.73 m2 defines CKD. Patients with eGFR values >/=60 mL/min/1.73 m2 may also have CKD if evidence of persistent proteinuria is present. The original MDRD equation for estimated GFR is not valid for patients less than 18 years of age. Additional information may be found at www.kdoqi.org. BUN/Creatinine 13.7 ratio 02/02/17 02/02/17 Ratio 9:51am 10:22am Sodium Level 140 mmol/L 136-145 02/02/17 02/02/17 9:51am 10:22am Potassium Level 3.9 mmol/L 3.5-5.1 02/02/17 02/02/17 9:51am 10:22am Chloride Level 108 mmol/L H 98-107 02/02/17 02/02/17 9:51am 10:22am Carbon Dioxide 26 mmol/L 21-32 02/02/17 02/02/17 Level 9:51am 10:22am Anion Gap 6 mEq/L L 8-16 02/02/17 02/02/17 9:51am 10:22am Calcium Level 8.7 mg/dL 8.5-10.1 02/02/17 02/02/17 9:51am 10:22am Total Protein 7.7 g/dL 6.4-8.2 02/02/17 02/02/17 9:51am 10:22am Albumin 3.9 g/dL 3.4-5.0 02/02/17 02/02/17 9:51am 10:22am Globulin 3.8 g/dL 1.9-4.3 02/02/17 02/02/17 9:51am 10:22am Albumin/Globulin 1.0 ratio 02/02/17 02/02/17 Ratio 9:51am 10:22am Total Bilirubin 1.2 mg/dL H 0.2-1.0 02/02/17 02/02/17 9:51am 10:22am Aspartate Amino 15 U/L 15-37 02/02/17 02/02/17 Transf (AST/SGOT) 9:51am 10:22am Alanine 26 U/L 12-78 02/02/17 02/02/17 Aminotransferase 9:51am 10:22am (ALT/SGPT) Alkaline 73 U/L 45-117 02/02/17 02/02/17 Phosphatase 9:51am 10:22am Lipase 190 U/L 56-289 02/02/17 02/02/17 9:51am 10:22am Total Creatine 70 U/L 26-192 11/04/16 11/04/16 Kinase 1:13pm 1:40pm Procedures Procedure Status Date Provider(s) DIAG LAPARO SEPARATE PROC Completed 11/21/16 [place] ANKLE COMPLETE - 4 VIEWS Completed 01/10/17 HONG KINCAID [facility]SE [employer] CT ANGIO CHEST Active 02/02/17 TRINA MARTINEZ MD CHEST PA AND LATERAL Active 02/02/17 TRINA MARTINEZ MD Encounters Encounter Location Arrival/Admit Date Discharge/Depart Date Attending Provider Departed [facility] 02/02/17 9:23am 02/02/17 1:48pm MICHELLE Emergency [facility] Departed [facility] 01/10/17 2:23pm 01/10/17 3:50pm DIANNE NAVARRO Emergency [facility] Departed [facility] 11/21/16 6:45am 11/21/16 10:48am [place] Surgical Day [facility] Registered [facility] 11/18/16 9:08am [place] [facility] Departed [facility] 11/04/16 12:27pm 11/04/16 3:24pm CLYDE GALLEGOS Emergency [facility] MD Medical Ctr.
== END 2017-02-23 09:19 | disposition home or self-care (01) ==
LOC: UCCORT 08:23
DX: J06.9 Acute upper respiratory infection, unspecified (principal); Z72.89 Other problems related to lifestyle; Z87.891 Personal history of nicotine dependence
CPT/HCPCS: 99212; G0463

== ENCOUNTER 2017-03-23 09:10 | Emergency (ER) | payer OTHER ==
[2017-03-23 09:46] VITALS: BP 109/60
--- NOTE | 2017-03-23 09:55 | UC ---
Ear Complaint HPI - HPI Summary HPI Summary: RIGHT EAR PAIN X 5 DAYS + SORE THROAT, NASAL CONGESTION , NO COUGH , NO FEVER, NO CHILLS - History of Current Complaint Chief Complaint: UCEar Stated Complaint: EARS SORE THROAT Time Seen by Provider: 03/23/17 09:49 Hx Obtained From: Patient Hx Last Menstrual Period: 02/24/17 Onset/Duration: Gradual Onset, Lasting Days - 5, Still Present Severity Initially: Moderate Severity Currently: Moderate Aggravating Factors: Nothing Alleviating Factors: Nothing Associated Signs/Symptoms: Positive: URI Symptoms. Negative: Discharge, Hearing Loss, Foreign Body Sensation, Trauma to Ear, Swelling @ - Allergies/Home Medications Allergies/Adverse Reactions: Allergies Allergy/AdvReac Type Severity Reaction Status Date / Time No Known Allergies Allergy Verified 03/23/17 09:46 PMH/Surg Hx/FS Hx/Imm Hx Psychological History: Anxiety - Surgical History Surgical History: Yes Surgery Procedure, Year, and Place: Tubal lig-. GALLBLADDER-. KIDNEY STONE REMOVAL. t/a. thyroid cyst - Family History Known Family History: Negative: Cardiac Disease, Hypertension - Social History Alcohol Use: Occasionally Alcohol Amount: 1-2 A MONTH Substance Use Type: None Smoking Status (MU): Light Every Day Tobacco Smoker Amount Used/How Often: 4 CIGS DAILY Length of Time of Smoking/Using Tobacco: 6 YEARS Have You Smoked in the Last Year: Yes When Did the Patient Quit Smoking/Using Tobacco: 3 weeks ago - Immunization History Most Recent Influenza Vaccination: NOT CURRENT Review of Systems Constitutional: Chills, Fatigue Skin: Negative Eyes: Negative ENT: Sore Throat, Ear Ache, Nasal Discharge Respiratory: Cough Cardiovascular: Negative Gastrointestinal: Negative Is Patient Immunocompromised?: No All Other Systems Reviewed And Are Negative: Yes Physical Exam Triage Information Reviewed: Yes Appearance: Well-Appearing, No Pain Distress, Well-Nourished Vital Signs: Initial Vital Signs Temp 97.7 F 03/23/17 09:42 Pulse 64 03/23/17 09:42 Resp 18 03/23/17 09:42 BP 109/60 03/23/17 09:42 Pulse Ox 100 03/23/17 09:42 Vital Signs Reviewed: Yes Eye Exam: Normal Eyes: Positive: Conjunctiva Clear ENT: Positive: Normal ENT inspection, Hearing grossly normal, Pharynx normal, TM bulging - RIGHT EAR, TM red - RIGHT EAR Neck: Positive: Supple, Nontender, No Lymphadenopathy Respiratory Exam: Normal Respiratory: Positive: Chest non-tender, Lungs clear, Normal breath sounds Cardiovascular: Positive: RRR, No Murmur, Pulses Normal Skin Exam: Normal Ear Complaint Course/Dx - Differential Dx/Diagnosis Provider Diagnoses: OTITIS MEDIA Discharge - Discharge Plan Condition: Stable Disposition: HOME Prescriptions: Amoxicillin PO (*) [Amoxicillin 875 MG (*)] 875 mg PO BID #20 tab Patient Education Materials: Otitis Media (ED) Referrals: Zora Nevarez PA [Primary Care Provider] - If Needed
== END 2017-03-23 09:57 | disposition home or self-care (01) ==
LOC: UCCORT 09:10
DX: H66.91 Otitis media, unspecified, right ear (principal); F41.9 Anxiety disorder, unspecified; Z90.49 Acquired absence of other specified parts of digestive tract; Z87.442 Personal history of urinary calculi; Z87.891 Personal history of nicotine dependence
CPT/HCPCS: 99212; G0463

== ENCOUNTER 2017-05-06 11:45 | Emergency (ER) | payer OTHER ==
[2017-05-06] MEDS ORDERED: Ibuprofen ADULT LIQ* 600 MG/30 ML UDC PO ONE (13:48)
--- NOTE | 2017-05-06 13:56 | UC ---
UC General HPI - HPI Summary HPI Summary: pt has multiple complaints including headache, bodyaches and L arm "feels numb inside". this began 2 days ago(). pt was seen in ER day of onset. she states they did a cxr, ekg and labs. she states it was all normal. she was tx with toradol, benadryl and reglan while there. she presents to us with ongoing headache, bodyaches, L arm numness and now c/o feeling lightheaded, weak, R ear pain and states " feels like my head will explode" and "the back of my neck is very achy". no sore throat, abdominal pain, n/v/d or dysuria. states feels like passing out when sits up. - History of Current Complaint Chief Complaint: UCGeneralIllness Stated Complaint: EAR PAIN, WEAKNESS, LEFT ARM PAIN Time Seen by Provider: 05/06/17 13:34 Hx Obtained From: Patient, Family/Flight Test Supervisor Hx Last Menstrual Period: 05/02/17 Onset/Duration: Gradual Onset, Worse Since - since Timing: Constant Onset Severity: Severe Current Severity: Severe Pain Intensity: 8 Aggravating: light sensitive Alleviating: nothing Associated Signs & Symptoms: Positive: Headache, Nausea, Weakness - Allergy/Home Medications Allergies/Adverse Reactions: Allergies Allergy/AdvReac Type Severity Reaction Status Date / Time No Known Allergies Allergy Verified 05/06/17 12:44 PMH/Surg Hx/FS Hx/Imm Hx - Additional Past Medical History Additional PMH: enlarged pituitary gland Psychological History: Anxiety - Surgical History Surgical History: Yes Surgery Procedure, Year, and Place: Tubal lig-. GALLBLADDER-. KIDNEY STONE REMOVAL. t/a. thyroid cyst - Family History Known Family History: Positive: Other - thyroid disease, svt, chronic pain Negative: Cardiac Disease, Hypertension - Social History Lives: With Family Alcohol Use: None Alcohol Amount: 1-2 A MONTH Substance Use Type: None Smoking Status (MU): Former Smoker Amount Used/How Often: 4 CIGS DAILY Length of Time of Smoking/Using Tobacco: 6 YEARS Have You Smoked in the Last Year: Yes When Did the Patient Quit Smoking/Using Tobacco: 3 weeks ago - Immunization History Most Recent Influenza Vaccination: NOT CURRENT Vaccination Up to Date: Yes Review of Systems Constitutional: Negative Skin: Negative Eyes: Photophobia ENT: Negative Respiratory: Negative Cardiovascular: Negative Gastrointestinal: Nausea Genitourinary: Negative Motor: Negative Neurovascular: Other - L arm numbness Musculoskeletal: Myalgia Neurological: Headache, Paresthesia - LUE Psychological: Negative Is Patient Immunocompromised?: No All Other Systems Reviewed And Are Negative: Yes Physical Exam Triage Information Reviewed: Yes Appearance: Ill-Appearing - lying in darkened room(light for exam) hold ing under clothing. Vital Signs: Initial Vital Signs Temp 98.8 F 05/06/17 12:45 Pulse 81 05/06/17 12:45 BP 120/60 05/06/17 12:45 Pulse Ox 100 05/06/17 12:45 Vital Signs Reviewed: Yes Eyes: Positive: Conjunctiva Clear, Other: - photophobic ENT: Positive: Pharynx normal, TMs normal, Uvula midline. Negative: Nasal drainage Neck: Positive: Supple, Nontender, No Lymphadenopathy. Negative: Nuchal Rigidity Respiratory: Positive: Lungs clear, Normal breath sounds, No respiratory distress Cardiovascular: Positive: RRR, No Murmur Abdomen Description: Positive: Nontender, No Organomegaly, Soft Bowel Sounds: Positive: Present Musculoskeletal: Positive: No Edema Neurological: Positive: Alert, Other: - CN 2-12 grossly intact, 5/5 strenght, 2 + reflexes x4, superficial sensation grossly intact. pt c/o feeling lightheaded upon sitting thus did not stand pt. Psychological: Positive: Normal Response To Family, Age Appropriate Behavior Skin Exam: Normal UC Physical Exam Vital Signs On Initial Exam: Initial Vitals Temp Pulse BP Pulse Ox 98.8 F 81 120/60 100 05/06/17 12:45 05/06/17 12:45 05/06/17 12:45 05/06/17 12:45 Diagnostics - Laboratory Diagnostic Studies Completed/Ordered: rapid flu=neg. mild orthostaic changes in pulse. - EKG Cardiac Rate: NL - read by Dr sullivan, Bradycardia - sinus Ectopy: None ST Segment: Normal Re-Evaluation - Re-Evaluation Second Eval Re-Evaluation Time: 14:13 - exam is unchanged. pt agrees to ER transfer. mother offered to drive but pt requesting an ambulance due to TODD severity. Course/Dx - Course Course Of Treatment: pt requesting transfer to [facility]. transfer center called. report given to Danni at [phone]. transfer nurse called back and report given including pt coming via ems. EMS advised to wear masks because meningitis and encephalitis in pt differential. ems notes "that isn't necessary" so I have requested pt wear a mask until cleared bu [facility]. Nurse providing pt with mask. - Differential Dx - Multi-Symptom Differential Diagnoses: Other - given severe TODD and LUE numbness, will need to r /o meningitis, encephalitis and intracranial pathology such as bleed. pt requires ER transfer for higher level of care Provider Diagnoses: severe intractable headache. LUE numbness Discharge - Discharge Plan Condition: Stable Disposition: TRANS HIGHER LVL OF CARE FAC Referrals: Zora Nevarez PA [Primary Care Provider] -
[2017-05-06 14:11] VITALS: BP 119/59
== END 2017-05-06 14:47 | disposition short-term general hospital (02) ==
LOC: UCCORT 11:45
DX: G44.89 Other headache syndrome (principal); R20.0 Anesthesia of skin; Z87.891 Personal history of nicotine dependence
CPT/HCPCS: 87502; 93005; 99213; A9270-GY; G0463